=== PATIENT | female | born 1950 | race Caucasian/White ===

== ENCOUNTER 2021-03-02 07:02 | Emergency (ER) | payer MEDICARE ==
[~2021-03-02 07:02] MED LIST: KEFLEX500 MG PO; LOPRESSOR 25 MG25 MG PO
[2021-03-02 08:29] LABS: HEMOGLOBIN 13.8 gm/dl (12.3-15.3); RED BLOOD COUNT 4.29 M/UL (4.00-5.10); WHITE BLOOD COUNT 6.3 K/UL (4.5-11.0)
[2021-03-02 09:03] LABS: BUN/CREATININE RATIO 13 (0-10)
[2021-03-02] MEDS ORDERED: MACROBID 100 M100 MG PO (09:17)
[2021-03-02] MEDS ORDERED: ZOFRAN4 MG PO (09:21)
== END 2021-03-02 09:38 | disposition home or self-care (01) ==
LOC: ER1 07:02
PROVIDERS: Physician Assistant
DX: N39.0 Urinary tract infection, site not specified (principal); I10 Essential (primary) hypertension; Z90.49 Acquired absence of other specified parts of digestive tract; Z88.6 Allergy status to analgesic agent; Z88.2 Allergy status to sulfonamides
CPT/HCPCS: 80053; 81001; 82550; 82553; 83605; 83690; 83874; 84484; 85025; 87086; 93005; 96374; 99284; J0696; J7030

== ENCOUNTER → 2021-10-28 | Outpatient (CLI) | payer MEDICARE ==
[~2021-10-28] MED LIST changes: +MACROBID 100 M100 MG PO; +ZOFRAN4 MG PO
== END ==
LOC: KOH-I 10:11
DX: R09.89 Other specified symptoms and signs involving the circulatory and respiratory systems (principal); J32.3 Chronic sphenoidal sinusitis; J34.2 Deviated nasal septum; M26.02 Maxillary hypoplasia
CPT/HCPCS: 70486

== ENCOUNTER 2022-04-18 04:59 | Emergency (ER) | payer MEDICARE ==
[2022-04-18 06:22] LABS: HEMOGLOBIN 14.7 gm/dl (12.3-15.3); RED BLOOD COUNT 4.73 M/UL (4.00-5.10); WHITE BLOOD COUNT 3.1 K/UL (4.5-11.0)
[2022-04-18 06:49] LABS: BUN/CREATININE RATIO 9 (0-10)
== END 2022-04-18 10:25 | disposition home or self-care (01) ==
LOC: ER1 04:59
DX: K56.7 Ileus, unspecified (principal); I10 Essential (primary) hypertension; Z90.49 Acquired absence of other specified parts of digestive tract; Z88.2 Allergy status to sulfonamides; Z88.7 Allergy status to serum and vaccine; Z88.6 Allergy status to analgesic agent
CPT/HCPCS: 80053; 81001; 85025; 87086; 99284